=== PATIENT | female | born 1950 | race Two or more races ===

== ENCOUNTER 2018-04-20 00:40 | Emergency (ER) | payer OTHER ==
[~2018-04-20] VITALS: Ht 170.2 cm; Wt 81.6 kg
[2018-04-20] MEDS ORDERED: ATORVASTATIN CA20 MG (00:57)
[2018-04-20] MEDS ORDERED: COZAAR100 MG (00:57)
[2018-04-20] MEDS ORDERED: METRONIDAZOLE250 MG (00:57)
[2018-04-20] MEDS ORDERED: CYMBALTA60 MG (00:58)
[2018-04-20] MEDS ORDERED: OXYBUTYNIN CHLOR5 GM (00:58)
[2018-04-20] MEDS ORDERED: GRALISE600 MG (00:58)
[2018-04-20] MEDS ORDERED: ZONEGRAN100 MG (00:58)
[2018-04-20] MEDS ORDERED: ELIQUIS5 MG (00:59)
[2018-04-20] MEDS ORDERED: CEFUROXIME500 MG PO (07:03)
[2018-04-20] MEDS ORDERED: INTESTINEX680 M1 PO (07:03)
== END 2018-04-20 07:42 | disposition home or self-care (01) ==
LOC: ER 00:40
DX: N20.0 Calculus of kidney (principal); R10.31 Right lower quadrant pain; R10.11 Right upper quadrant pain; N39.0 Urinary tract infection, site not specified; B96.4 Proteus (mirabilis) (morganii) as the cause of diseases classified elsewhere